=== PATIENT | male | born 1945 | race Caucasian/White ===

== ENCOUNTER 2016-09-11 19:50 | Inpatient (IN) | payer MEDICARE, MEDICAID ==
[2016-09-11 20:28] VITALS: BP 160/79
[2016-09-11] MEDS ORDERED: Potassium Chloride 20 mEq ER Tab PO ONE (20:38)
[2016-09-11] MEDS ORDERED: Maalox 30 mL Cup PO PRN (20:38)
[2016-09-11] MEDS ORDERED: SUVOREXANT 10 MG PO PRN (20:44)
[2016-09-11] MEDS ORDERED: SUVOREXANT 10 MG PO SCH (21:00)
[2016-09-11] MEDS: INSULIN ASPART, RECOMBINANT 100 UNITS/ML SUBQ SCH (21:14)
[2016-09-11] MEDS: Albuterol Nebulizer 2.5mg/3mL IH SCH (22:26)
[2016-09-11] MEDS: Ipratropium Neb 0.5 mg/2.5 mL UD IH SCH (22:30)
[2016-09-12 01:11] LABS: URINE BILIRUBIN NEGATIVE (NEGATIVE); URINE COLOR YELLOW; URINE GLUCOSE (UA) 100 mg/dL (NEGATIVE); URINE KETONE NEGATIVE (NEGATIVE)
[2016-09-12 01:12] LABS: URINE BACTERIA OCCASIONAL /hpf (NONE SEEN); URINE BLOOD SMALL (NEGATIVE); URINE EPITHELIAL CELLS OCCASIONAL /lpf (FEW); URINE PROTEIN >300 mg/dL (NEGATIVE); URINE RBC 0-2 /hpf (0-5); URINE WBC 0-2 /hpf (0-5)
[2016-09-12] MEDS: INSULIN ASPART, RECOMBINANT 100 UNITS/ML SUBQ SCH ×4 (06:38→20:23)
[2016-09-12 06:41] LABS: % BASOPHILS 0.2 % (0.0-2.0); % LYMPHOCYTES 10.9 % (20.0-50.0); % MONOCYTES 6.6 % (2.0-10.0); % NEUTROPHILS 81.3 % (40.0-80.0); HEMATOCRIT 39.5 % (39.0-49.0); HEMOGLOBIN 13.6 gm/dL (12.6-17.4); MEAN CELL VOLUME 91.7 fl (80-99); MEAN CORPUSCULAR HEMOGLOBIN 31.5 pg (27.0-31.0); MEAN CORPUSCULAR HGB CONC 34.4 pg (28.0-36.0); MEAN PLATELET VOLUME 8.4 fl; PLATELET COUNT 130 Th/cmm (150-400); RED CELL DISTRIBUTION WIDTH 12.8 % (11.5-20.0); WHITE BLOOD COUNT 14.7 Th/cmm (4.8-10.8)
[2016-09-12 06:57] LABS: ALKALINE PHOSPHATASE 51 U/L (34-104); ANION GAP 4.2 (7.0-16.0); BILIRUBIN,TOTAL 1.7 mg/dL (0.3-1.0); BUN - UREA NITROGEN 16 mg/dL (7-25); BUN/CREATININE RATIO 13.3; CARBON DIOXIDE 33.6 mEq/L (21.0-31.0); CHLORIDE 99 mEq/L (98-107); CREATININE - SERUM 1.2 mg/dL (0.7-1.3); GLUCOSE 116 mg/dL (70-105); MAGNESIUM 1.5 mg/dL (1.9-2.7); SGOT 16 U/L (13-39); SGPT/ALT 12 U/L (7-52); SODIUM SERUM 134 mEq/L (136-145)
[2016-09-12 07:14] LABS: POTASSIUM SERUM 2.8 mEq/L (3.5-5.1)
[2016-09-12] MEDS: Albuterol Nebulizer 2.5mg/3mL IH SCH ×4 (07:53→19:24)
[2016-09-12] MEDS: Ipratropium Neb 0.5 mg/2.5 mL UD IH SCH ×4 (07:54→19:24)
[2016-09-12] MEDS: Pantoprazole 40 mg EC Tab PO SCH (09:12)
--- NOTE | 2016-09-12 11:05 | Diagnostic Imaging Report ---
Portable chest x-ray HISTORY: Shortness of breath The heart is enlarged. There is a degree of pulmonary vascular redistribution consistent with an element of cardiac decompensation. No jayro pulmonary edema. No other focal processes. IMPRESSION: 1. Cardiomegaly along with evidence of a marginal degree of congestive heart failure without jayro pulmonary edema.
[2016-09-12] MEDS: KCL 20mEq/100mL Premix 20 MEQ/100 ML PIGGYBACK IV SCH ×2 (11:20→13:16)
[2016-09-12] MEDS ORDERED: VTE Chemical Prophylaxis Screen/Admission MC PRN (11:38)
--- NOTE | 2016-09-12 12:49 | Internal Medicine Prog Note ---
Internal Medicine Subjective - Subjective Service Date: 09/12/16 ([facility] [id number]) Internal Medicine Objective - Results Result Diagrams: 09/12/16 06:02 09/12/16 06:02 Recent Labs: Laboratory Last Values WBC 14.7 Th/cmm (4.8-10.8) H 09/12/16 06:02 RBC 4.30 Mil/cmm (3.80-5.80) 09/12/16 06:02 Hgb 13.6 gm/dL (12.6-17.4) 09/12/16 06:02 Hct 39.5 % (39.0-49.0) 09/12/16 06:02 MCV 91.7 fl (80-99) 09/12/16 06:02 MCH 31.5 pg (27.0-31.0) H 09/12/16 06:02 MCHC Differential 34.4 pg (28.0-36.0) 09/12/16 06:02 RDW 12.8 % (11.5-20.0) 09/12/16 06:02 Plt Count 130 Th/cmm (150-400) L 09/12/16 06:02 MPV 8.4 fl 09/12/16 06:02 Neutrophils % 81.3 % (40.0-80.0) H 09/12/16 06:02 Lymphocytes % 10.9 % (20.0-50.0) L 09/12/16 06:02 Monocytes % 6.6 % (2.0-10.0) 09/12/16 06:02 Eosinophils % 1.0 % (0.0-5.0) 09/12/16 06:02 Basophils % 0.2 % (0.0-2.0) 09/12/16 06:02 Sodium 134 mEq/L (136-145) L 09/12/16 06:02 Potassium 2.8 mEq/L (3.5-5.1) L* 09/12/16 06:02 Chloride 99 mEq/L (98-107) 09/12/16 06:02 Carbon Dioxide 33.6 mEq/L (21.0-31.0) H 09/12/16 06:02 Anion Gap 4.2 (7.0-16.0) L 09/12/16 06:02 BUN 16 mg/dL (7-25) 09/12/16 06:02 Creatinine 1.2 mg/dL (0.7-1.3) 09/12/16 06:02 Est GFR ( Amer) TNP 09/12/16 06:02 Est GFR (Non-Af Amer) TNP 09/12/16 06:02 BUN/Creatinine Ratio 13.3 09/12/16 06:02 Glucose 116 mg/dL (70-105) H 09/12/16 06:02 POC Glucose 113 MG/DL (70 - 105) H 09/12/16 12:16 Calcium 9.0 mg/dL (8.6-10.3) 09/12/16 06:02 Magnesium 1.5 mg/dL (1.9-2.7) L 09/12/16 06:02 Total Bilirubin 1.7 mg/dL (0.3-1.0) H 09/12/16 06:02 AST 16 U/L (13-39) 09/12/16 06:02 ALT 12 U/L (7-52) 09/12/16 06:02 Alkaline Phosphatase 51 U/L (34-104) 09/12/16 06:02 B-Natriuretic Peptide 1300.0 pg/mL (5.0-100.0) H 09/12/16 06:02 Total Protein 6.4 gm/dL (6.0-8.3) 09/12/16 06:02 Albumin 3.2 gm/dL (4.2-5.5) L 09/12/16 06:02 Globulin 3.2 gm/dL 09/12/16 06:02 Albumin/Globulin Ratio 1.0 (1.0-1.8) 09/12/16 06:02 TSH 0.60 uIU/ml (0.34-5.60) 09/12/16 06:02 Urine Source CLEAN C 09/12/16 00:15 Urine Color YELLOW 09/12/16 00:15 Urine Clarity CLEAR (CLEAR) 09/12/16 00:15 Urine pH 7.0 09/12/16 00:15 Ur Specific [place] 1.020 (1.005-1.030) 09/12/16 00:15 Urine Protein >300 mg/dL (NEGATIVE) H 09/12/16 00:15 Urine Glucose (UA) 100 mg/dL (NEGATIVE) H 09/12/16 00:15 Urine Ketones NEGATIVE mg/dL (NEGATIVE) 09/12/16 00:15 Urine Blood SMALL (NEGATIVE) H 09/12/16 00:15 Urine Nitrate NEGATIVE (NEGATIVE) 09/12/16 00:15 Urine Bilirubin NEGATIVE (NEGATIVE) 09/12/16 00:15 Urine Urobilinogen 4.0 E.U./dL (0.2 - 1.0) H 09/12/16 00:15 Ur Leukocyte Esterase NEGATIVE (NEGATIVE) 09/12/16 00:15 Urine RBC 0-2 /hpf (0-5) H 09/12/16 00:15 Urine WBC 0-2 /hpf (0-5) 09/12/16 00:15 Ur Epithelial Cells OCCASIONAL /lpf (FEW) 09/12/16 00:15 Urine Bacteria OCCASIONAL /hpf (NONE SEEN) 09/12/16 00:15 - Physical Exam Vitals and I&O: Vital Signs Temp 97.9 F 09/12/16 12:01 Pulse 80 09/12/16 12:01 Resp 19 09/12/16 12:01 BP 146/72 09/12/16 12:01 Pulse Ox 98 09/12/16 12:01 Intake & Output 09/11/16 09/12/16 09/12/16 18:59 06:59 18:59 Intake Total 800 Balance 800 Weight (lbs) 219 lb 9.6 oz Intake: Oral 800 Other: # Voids 2 # Bowel Movements 0 Active Medications: Current Medications Acetaminophen (Tylenol) 650 mg PO Q4HR PRN PRN Reason: Pain or Fever >101 Stop: 11/10/16 20:37 Last Admin: 09/12/16 04:13 Dose: 650 mg Al Hydrox/Mg Hydrox/Simethicone (Maalox) 30 ml PO Q6HR PRN PRN Reason: Constipation Stop: 11/10/16 20:37 Albuterol Sulfate (Albuterol 2.5mg/3ml Neb Ud) 2.5 mg IH QID [facility] Stop: 11/10/16 20:59 Last Admin: 09/12/16 11:16 Dose: 2.5 mg Aspirin (Ecotrin) 81 mg PO DAILY [facility] Stop: 11/11/16 08:59 Last Admin: 09/12/16 09:11 Dose: 81 mg Benazepril HCl (Lotensin) 10 mg PO BID [facility] Stop: 11/11/16 08:59 Last Admin: 09/12/16 09:10 Dose: 10 mg Carvedilol (Coreg) 6.25 mg PO BID [facility] Stop: 11/11/16 08:59 Last Admin: 09/12/16 09:11 Dose: 6.25 mg Clonidine HCl (Catapres) 0.1 mg PO Q6HR PRN PRN Reason: SBP GREATER THAN 160 Stop: 11/10/16 20:37 Furosemide (Lasix) 20 mg IVP BID [facility] Stop: 11/11/16 08:59 Last Admin: 09/12/16 09:12 Dose: 20 mg Glipizide (Glucotrol) 5 mg PO QDAC [facility] Stop: 11/11/16 07:29 Last Admin: 09/12/16 06:37 Dose: 5 mg Heparin Sodium (Porcine) (Heparin) 5,000 units SUBQ Q12HR [facility] Stop: 11/10/16 20:59 Last Admin: 09/12/16 09:12 Dose: 5,000 units Potassium Chloride (Potassium Chloride) 20 meq in 100 mls @ 50 mls/hr IV Q2H [facility] Stop: 09/12/16 14:29 Last Admin: 09/12/16 11:20 Dose: 50 mls/hr Insulin Aspart (Novolog) 0 units SUBQ ACHS [facility] PRN Reason: Protocol Stop: 11/10/16 20:59 Last Admin: 09/12/16 12:17 Dose: Not Given Ipratropium [place] (Atrovent Neb 0.5mg/2.5ml) 0.5 mg IH QID [facility] Stop: 11/10/16 20:59 Last Admin: 09/12/16 11:16 Dose: 0.5 mg Miscellaneous (Suvorexant [Belsomra]) 10 mg PO HS PRN PRN Reason: Insomnia Stop: 11/10/16 20:59 Miscellaneous (Vte Chemical Prophylaxis Screen/ Admission) 1 ea [facility] PRN PRN PRN Reason: PROTOCOL Stop: 11/11/16 11:37 Ondansetron HCl (Zofran) 4 mg IV Q8H PRN PRN Reason: Nausea / Vomiting Stop: 11/10/16 20:37 Pantoprazole Sodium (Protonix) 40 mg PO DAILY [facility] Stop: 11/11/16 08:59 Last Admin: 09/12/16 09:12 Dose: 40 mg Zolpidem Tartrate (Ambien) 10 mg PO HS PRN PRN Reason: Insomnia Stop: 11/10/16 20:37 Internal Medicine Assmt/Plan - Assessment Assessment: acute chf exacerbation hypokalemia hypocalcemia htn dm-2 alcoholism ckd stage 3
[2016-09-12] MEDS ORDERED: Mag Sulfate 2gm/50mL Premix 2 GM/50 ML BAG IV ONE (12:50)
--- NOTE | 2016-09-12 14:00 | History & Physical ---
CHIEF COMPLAINT: Shortness of breath. HISTORY OF PRESENT ILLNESS: This is a 71-year-old male who is a direct admission from [facility]. According to the patient, he has been having a 3-day history of shortness of breath associated with productive cough with greenish phlegm. The patient denied any fevers or any recent travel outside of the . Denies any chills or night sweats. Due to insurance purposes, the patient is now here at [facility]. The patient also states when he is lying down flat, he states that he feels like he is drowning. PAST MEDICAL HISTORY: Hypertension, type 2 diabetes, CHF, hypokalemia, CKD, stage III, history of CVA or alcohol dependence. SURGICAL HISTORY: Hernia repair, cholecystectomy, appendectomy. SOCIAL HISTORY: The patient denies any tobacco, but states that he drinks 6 can of beers per day. Denies any illicit drug usage. FAMILY HISTORY: Unknown. MEDICATIONS: Please see medication reconciliation sheet. REVIEW OF SYSTEMS: GENERAL: Denies any fevers, any chills. CARDIOVASCULAR: Denies any chest pain. RESPIRATORY: Complains of shortness of breath when lying down flat. GASTROINTESTINAL: Denies any nausea, vomiting, or abdominal pain. GENITOURINARY: He denies any dysuria. All other systems are reviewed by me and are negative. PHYSICAL EXAMINATION: SKIN: The patient is morbidly obese, awake, alert and in no apparent distress. VITAL SIGNS: Temperature 97.9, heart rate 80, blood pressure 146/72, respirations 19, O2 98%. HEENT: Head; normocephalic, atraumatic. NECK: Supple. No mass. LUNGS: Few rhonchi bilaterally upon auscultation. HEART: Regular rate and rhythm. No murmurs or gallops. ABDOMEN: Soft, nontender, nondistended. Positive bowel sounds in all 4 quadrants. LABORATORY DATA: WBC 14.7, H and H 13.6 and 39.5, platelet 130. Sodium 134, potassium 2.8, chloride 99, carbon dioxide of 33.6, BUN 16, creatinine 1.2, magnesium of 1.5. The patient had a chest x-ray done and the impression is cardiomegaly along with evidence of marginal degree of congestive heart failure without jayro pulmonary edema. ASSESSMENT: 1. Congestive heart failure exacerbation. 2. Hypokalemia. 3. Hyponatremia. 4. Alcoholism. 5. Protein-calorie malnutrition. PLAN: The patient to be admitted to the telemetry unit. The patient will have a consultation with Dr. Guru Casey. The patient will have 2D echo. CBC and BMP will be monitored. The patient's electrolytes will be monitored as well. The patient will be kept on diuretics, Lasix 20 mg IV push. We will continue to monitor the patient. JOB# [id number]
--- NOTE | 2016-09-12 19:36 | Cardiology ---
Patient of Dr. Urias. M-MODE ECHOCARDIOGRAM: Mitral Valve: Anterior leaflet of the mitral valve shows normal excursion, EF velocity. Posterior leaflet of the mitral valve shows normal excursion. Left ventricular posterior wall shows increased thickness, decreased excursion. Interventricular septum shows increased thickness, decreased excursion, ejection fraction 45%. Left atrium enlarged, 4.6 cm. Aortic root shows normal dimension, normal excursion of aortic leaflets. CONCLUSION: Hypertrophy of the left ventricle, ejection fraction 40%, left atrial enlargement. 2D ECHO: Long axis view shows enlarged left ventricular cavity with decreased ejection fraction, hypertrophy of the left ventricle, left atrial enlargement. Aortic root shows normal dimension, normal excursion of aortic leaflets. Short axis view of mitral valve normal. Short axis view of aortic valve normal. Apical four-chamber view shows enlarged left ventricular cavity with hypertrophy of the left ventricle, ejection fraction 40%, left atrial enlargement. Right ventricular cavity, right atrium normal. No pericardial effusion. CONCLUSION: Hypertrophy of the left ventricle, ejection fraction 40%, left atrial enlargement. Doppler study shows prominent A wave consistent with poor compliance of left ventricle, mild mitral regurgitation, mild aortic regurgitation. JOB# [id number]
--- NOTE | 2016-09-13 02:12 | Admit Criteria Form ---
Admit Criteria Forms - Admit Criteria Diagnosis: HEART FAILURE: COMMON COMPLICATIONS Clinical Indications for Inpatient Care (Place 'X' for any and all applicable criteria): Ongoing inpatient care may be indicated for heart failure with ANY ONE of the following (1)(2)(3)(4)(5): [ ]I. Ongoing need for care for primary condition requiring frequent therapy adjustments because of changes in cardiac function (eg, drug dosage changes for drugs that are renally metabolized) [ ]II. New-onset heart failure [ ]III. Heart failure with decreased urine output not responsive to attempts to optimize volume status [ ]IV. Acute cardiac ischemia causing or associated with failure [ X]V. Complications of heart failure, including ANY ONE of the following: [ ]a) Pericardial effusion [ ]b) Symptomatic pleural effusion [ ]c) O2 saturation <90% or PO2 < 60 mm Hg (8.0 kPa) on room air or require baseline supplemental O2 [ ]d) Tachypnea [ X]e) Dyspnea [ ]f) Syncope [ ]g) Change in mental status [ ]h) Acute renal insufficiency that is severe (reduction of more than 50% in estimated glomerular filtration rate from baseline) or progressive reduction of more than 25% in estimated glomerular filtration rate from baseline, with creatinine continuing to rise) [ ]i) Hemodynamic instability [ ]j) Anasarca [ ]k) Clinically significant metabolic abnormalities due to heart failure (eg, new-onset metabolic acidosis) Extended stay beyond goal length of stay for primary condition may be needed until ALL of the following are present(1)(3): [ ]a) Stable and effective diuretic regimen established (or patient on stable dialysis regimen if in chronic renal failure) [ ]b) Breathing comfortably at rest [ ]c) Saturation of arterial oxygen greater than 90% or at acceptable baseline [ ]d) Pulmonary edema absent or improved [ ]e) Hemodynamic stability [ ]f) Volume status acceptable on oral medication [ ]g) Peripheral or sacral edema absent or improved [ ]h) Renal function stable and manageable at a lower level of care [ ]i) Complications (eg, pleural effusion) resolved or manageable at a lower level of care [ ]j) Patient or caregiver has received written discharge instructions or educational material addressing activity level, diet, discharge medications, follow-up appointment, weight monitoring, and what to do if symptoms worsen The original [facility] [employer] content created by [employer] has been revised. The portions of the content which have been revised are identified through the use of italic text or in bold, and [employer] has neither reviewed nor approved the modified material.All other unmodified content is copyright [employer]. Please see references footnoted in the original [employer] edition 2016 Admit Criteria Met?: Yes
[2016-09-13] MEDS: INSULIN ASPART, RECOMBINANT 100 UNITS/ML SUBQ SCH ×4 (06:31→20:36)
[2016-09-13] MEDS: Ipratropium Neb 0.5 mg/2.5 mL UD IH SCH (06:51)
[2016-09-13] MEDS: Albuterol Nebulizer 2.5mg/3mL IH SCH (06:51)
[2016-09-13 07:00] LABS: % BASOPHILS 0.6 % (0.0-2.0); % EOSINOPHILS 3.6 % (0.0-5.0); % LYMPHOCYTES 15.3 % (20.0-50.0); % MONOCYTES 9.8 % (2.0-10.0); % NEUTROPHILS 70.7 % (40.0-80.0); HEMATOCRIT 38.8 % (39.0-49.0); HEMOGLOBIN 13.3 gm/dL (12.6-17.4); MEAN CELL VOLUME 93.1 fl (80-99); MEAN CORPUSCULAR HEMOGLOBIN 31.9 pg (27.0-31.0); MEAN CORPUSCULAR HGB CONC 34.3 pg (28.0-36.0); MEAN PLATELET VOLUME 8.8 fl; NEUTROPHILE ABSOLUTE 6.7 Th/cmm (1.8-8.0); PLATELET COUNT 130 Th/cmm (150-400); RED BLOOD COUNT 4.16 Mil/cmm (3.80-5.80)
--- NOTE | 2016-09-13 07:07 | Consultation ---
The patient is a patient of Dr. Urias. HISTORY AND PHYSICAL: This is a 71-year-old male patient who was complaining of shortness of breath following cough with expectoration. The patient was seen at [facility] and the patient was transferred to [facility]. PAST MEDICAL HISTORY: The patient has a history of hypertension, diabetes, congestive heart failure, CKD stage III, CVA with late effect, alcohol dependence, cholecystectomy, hernia repair and appendectomy. FAMILY HISTORY: Unremarkable. SOCIAL HISTORY: No history of smoking. The patient drinks 6 beers a day. ALLERGIES: No known allergies. PHYSICAL EXAMINATION: VITAL SIGNS: Blood pressure 130/80, pulse 70 and respirations 20. HEAD: Normocephalic. No lumps or bumps. EYES: Pupils equal and reactive to light. Fundi show AV nicking. Sclerae white, conjunctivae pink. NECK: Carotid 2+. Normal upstroke. JVD flat. Thyroid not palpable. Lymph nodes not palpable. CHEST: Shows increased AP diameter. No kyphosis or scoliosis. LUNGS: Bilateral bronchovesicular breath sounds. HEART: PMI fifth intercostal space with lateral to midclavicular line. S1, S2, S3, S4, systolic murmur, grade 2/6, lower left sternal border without radiation. ABDOMEN: Soft. Liver and spleen not palpable. No organomegaly. Bowel sounds are active. NEUROLOGIC: Unremarkable. EXTREMITIES: Peripheral pulses 2+. No pedal edema. The patient has elevated BNP level. CLINICAL IMPRESSION: Congestive heart failure. We will get echocardiogram to evaluate left ventricular function, hypertension, diabetes mellitus type 2, hyperlipidemia, diabetic CKD stage III, hypokalemia, CVA with late effect and alcohol dependence. PLAN: The patient to continue on diuretics still lot of ____ reduction, echocardiogram and a followup on telemetry bed. JOB# [id number]
[2016-09-13 07:13] LABS: WHITE BLOOD COUNT 9.4 Th/cmm (4.8-10.8)
[2016-09-13 07:21] LABS: ANION GAP 11.3 (7.0-16.0); BUN - UREA NITROGEN 22 mg/dL (7-25); BUN/CREATININE RATIO 15.7; CALCIUM SERUM 9.1 mg/dL (8.6-10.3); CARBON DIOXIDE 32.4 mEq/L (21.0-31.0); CHLORIDE 96 mEq/L (98-107); CREATININE - SERUM 1.4 mg/dL (0.7-1.3); GLUCOSE 107 mg/dL (70-105); SODIUM SERUM 137 mEq/L (136-145)
[2016-09-13 07:35] LABS: POTASSIUM SERUM 2.7 mEq/L (3.5-5.1)
[2016-09-13] MEDS: Pantoprazole 40 mg EC Tab PO SCH (08:55)
[2016-09-13] MEDS ORDERED: Mag Sulfate 2gm/50mL Premix 2 GM/50 ML BAG IV ONE (09:28)
[2016-09-13] MEDS ORDERED: LIDOCAINE IV ONE (09:29)
[2016-09-13] MEDS ORDERED: SODIUM CHLORIDE 0.9% IV ONE (09:29)
[2016-09-13] MEDS ORDERED: POTASSIUM CHLORIDE IV ONE (09:29)
[2016-09-13] MEDS: Ipratropium Neb 0.5 mg/2.5 mL UD HHN SCH ×3 (10:58→19:22)
[2016-09-13] MEDS: Albuterol Nebulizer 2.5mg/3mL HHN SCH ×3 (10:58→19:22)
[2016-09-13 14:24] LABS: FOLIC ACID 10.5 ng/mL (>3.0)
--- NOTE | 2016-09-13 15:21 | Internal Medicine Prog Note ---
Internal Medicine Subjective - Subjective Patient seen and examined:: with staff, chart reviewed Patient is:: awake, interactive, in bed Patient Complaints of:: congestion Per staff patient is:: no adverse event, eating well Internal Medicine Objective - Results Result Diagrams: 09/13/16 06:10 09/13/16 06:10 Recent Labs: Laboratory Last Values WBC 9.4 Th/cmm (4.8-10.8) D 09/13/16 06:10 RBC 4.16 Mil/cmm (3.80-5.80) 09/13/16 06:10 Hgb 13.3 gm/dL (12.6-17.4) 09/13/16 06:10 Hct 38.8 % (39.0-49.0) L 09/13/16 06:10 MCV 93.1 fl (80-99) 09/13/16 06:10 MCH 31.9 pg (27.0-31.0) H 09/13/16 06:10 MCHC Differential 34.3 pg (28.0-36.0) 09/13/16 06:10 RDW 13.0 % (11.5-20.0) 09/13/16 06:10 Plt Count 130 Th/cmm (150-400) L 09/13/16 06:10 MPV 8.8 fl 09/13/16 06:10 Neutrophils % 70.7 % (40.0-80.0) 09/13/16 06:10 Lymphocytes % 15.3 % (20.0-50.0) L 09/13/16 06:10 Monocytes % 9.8 % (2.0-10.0) 09/13/16 06:10 Eosinophils % 3.6 % (0.0-5.0) 09/13/16 06:10 Basophils % 0.6 % (0.0-2.0) 09/13/16 06:10 Sodium 137 mEq/L (136-145) 09/13/16 06:10 Potassium 2.7 mEq/L (3.5-5.1) L* 09/13/16 06:10 Chloride 96 mEq/L (98-107) L 09/13/16 06:10 Carbon Dioxide 32.4 mEq/L (21.0-31.0) H 09/13/16 06:10 Anion Gap 11.3 (7.0-16.0) 09/13/16 06:10 BUN 22 mg/dL (7-25) 09/13/16 06:10 Creatinine 1.4 mg/dL (0.7-1.3) H 09/13/16 06:10 Est GFR ( Amer) TNP 09/13/16 06:10 Est GFR (Non-Af Amer) TNP 09/13/16 06:10 BUN/Creatinine Ratio 15.7 09/13/16 06:10 Glucose 107 mg/dL (70-105) H 09/13/16 06:10 POC Glucose 163 MG/DL (70 - 105) H 09/13/16 11:16 Calcium 9.1 mg/dL (8.6-10.3) 09/13/16 06:10 Magnesium 1.8 mg/dL (1.9-2.7) L 09/13/16 06:10 Total Bilirubin 1.7 mg/dL (0.3-1.0) H 09/12/16 06:02 AST 16 U/L (13-39) 09/12/16 06:02 ALT 12 U/L (7-52) 09/12/16 06:02 Alkaline Phosphatase 51 U/L (34-104) 09/12/16 06:02 B-Natriuretic Peptide 1300.0 pg/mL (5.0-100.0) H 09/12/16 06:02 Total Protein 6.4 gm/dL (6.0-8.3) 09/12/16 06:02 Albumin 3.2 gm/dL (4.2-5.5) L 09/12/16 06:02 Globulin 3.2 gm/dL 09/12/16 06:02 Albumin/Globulin Ratio 1.0 (1.0-1.8) 09/12/16 06:02 Vitamin B12 333 pg/mL (211-946) 09/12/16 06:02 Folic Acid 10.5 ng/mL (>3.0) 09/12/16 06:02 TSH 0.60 uIU/ml (0.34-5.60) 09/12/16 06:02 Urine Source CLEAN C 09/12/16 00:15 Urine Color YELLOW 09/12/16 00:15 Urine Clarity CLEAR (CLEAR) 09/12/16 00:15 Urine pH 7.0 09/12/16 00:15 Ur Specific [place] 1.020 (1.005-1.030) 09/12/16 00:15 Urine Protein >300 mg/dL (NEGATIVE) H 09/12/16 00:15 Urine Glucose (UA) 100 mg/dL (NEGATIVE) H 09/12/16 00:15 Urine Ketones NEGATIVE mg/dL (NEGATIVE) 09/12/16 00:15 Urine Blood SMALL (NEGATIVE) H 09/12/16 00:15 Urine Nitrate NEGATIVE (NEGATIVE) 09/12/16 00:15 Urine Bilirubin NEGATIVE (NEGATIVE) 09/12/16 00:15 Urine Urobilinogen 4.0 E.U./dL (0.2 - 1.0) H 09/12/16 00:15 Ur Leukocyte Esterase NEGATIVE (NEGATIVE) 09/12/16 00:15 Urine RBC 0-2 /hpf (0-5) H 09/12/16 00:15 Urine WBC 0-2 /hpf (0-5) 09/12/16 00:15 Ur Epithelial Cells OCCASIONAL /lpf (FEW) 09/12/16 00:15 Urine Bacteria OCCASIONAL /hpf (NONE SEEN) 09/12/16 00:15 - Physical Exam Vitals and I&O: Vital Signs Temp 98.0 F 09/13/16 12:00 Pulse 78 09/13/16 14:01 Resp 20 09/13/16 14:01 BP 137/64 09/13/16 12:00 Pulse Ox 98 09/13/16 14:01 Intake & Output 09/12/16 09/13/16 09/13/16 18:59 06:59 18:59 Intake Total 246.933 021 9457 Output Total 650 550 Balance -403.333 480 550 Weight (lbs) 99.473 kg Intake: Intake, IV Amount 246.667 KCL 20mEq/100mL Premix 20 96.667 meq In 100 ml @ 50 mls/ hr IV Q2H [facility] Rx#: [id number] Oral 480 1100 Output: Urine 650 550 Other: # Voids 4 3 Active Medications: Current Medications Acetaminophen (Tylenol) 650 mg PO Q4HR PRN PRN Reason: Pain or Fever >101 Stop: 11/10/16 20:37 Last Admin: 09/12/16 04:13 Dose: 650 mg Al Hydrox/Mg Hydrox/Simethicone (Maalox) 30 ml PO Q6HR PRN PRN Reason: Constipation Stop: 11/10/16 20:37 Albuterol Sulfate (Albuterol 2.5mg/3ml Neb Ud) 2.5 mg HHN QIDRT [facility] Stop: 11/12/16 10:59 Last Admin: 09/13/16 14:01 Dose: 2.5 mg Aspirin (Ecotrin) 81 mg PO DAILY [facility] Stop: 11/11/16 08:59 Last Admin: 09/13/16 09:46 Dose: 81 mg Benazepril HCl (Lotensin) 10 mg PO BID [facility] Stop: 11/11/16 08:59 Last Admin: 09/13/16 08:53 Dose: 10 mg Carvedilol (Coreg) 6.25 mg PO BID [facility] Stop: 11/11/16 08:59 Last Admin: 09/13/16 08:54 Dose: 6.25 mg Clonidine HCl (Catapres) 0.1 mg PO Q6HR PRN PRN Reason: SBP GREATER THAN 160 Stop: 11/10/16 20:37 Furosemide (Lasix) 20 mg IVP BID [facility] Stop: 11/11/16 08:59 Last Admin: 09/13/16 08:55 Dose: 20 mg Glipizide (Glucotrol) 5 mg PO QDAC [facility] Stop: 11/11/16 07:29 Last Admin: 09/13/16 06:33 Dose: 5 mg Heparin Sodium (Porcine) (Heparin) 5,000 units SUBQ Q12HR [facility] Stop: 11/10/16 20:59 Last Admin: 09/13/16 08:55 Dose: 5,000 units Potassium Chloride 60 meq/Lidocaine HCl 25 mg/ Sodium Chloride 282.5 mls @ 48 mls/hr IV X1 ONE Stop: 09/13/16 15:22 Last Admin: 09/13/16 10:58 Dose: 48 mls/hr Insulin Aspart (Novolog) 0 units SUBQ ACHS [facility] PRN Reason: Protocol Stop: 11/10/16 20:59 Last Admin: 09/13/16 11:47 Dose: Not Given Ipratropium [place] (Atrovent Neb 0.5mg/2.5ml) 0.5 mg HHN QIDRT [facility] Stop: 03/27/17 10:59 Last Admin: 09/13/16 14:01 Dose: 0.5 mg Miscellaneous (Suvorexant [Belsomra]) 10 mg PO HS PRN PRN Reason: Insomnia Stop: 11/10/16 20:59 Miscellaneous (Vte Chemical Prophylaxis Screen/ Admission) 1 ea [facility] PRN PRN PRN Reason: PROTOCOL Stop: 11/11/16 11:37 Ondansetron HCl (Zofran) 4 mg IV Q8H PRN PRN Reason: Nausea / Vomiting Stop: 11/10/16 20:37 Pantoprazole Sodium (Protonix) 40 mg PO DAILY [facility] Stop: 11/11/16 08:59 Last Admin: 09/13/16 08:55 Dose: 40 mg Zolpidem Tartrate (Ambien) 10 mg PO HS PRN PRN Reason: Insomnia Stop: 11/10/16 20:37 General: alert HEENT: NC/AT, PERRLA Neck: Supple, No JVD Lungs: congested, rales Cardiovascular: RRR, Normal S1, Normal S2 Abdomen: soft non-tender, globular, distended, positive bowel sound Extremities: excoriation Neurological: no change Internal Medicine Assmt/Plan - Assessment Assessment: acute chf exacerbation hypokalemia hypocalcemia htn dm-2 alcoholism ckd stage 3 - Plan Plan: will replace lytes cont on iv diuretic card follow up 2 d echo pending huyen talbot
[2016-09-13] MEDS: Potassium Chloride 20 mEq ER Tab PO SCH (17:36)
[2016-09-14] MEDS: INSULIN ASPART, RECOMBINANT 100 UNITS/ML SUBQ SCH ×2 (06:31→11:22)
[2016-09-14 06:46] LABS: ANION GAP 8.1 (7.0-16.0); BUN - UREA NITROGEN 24 mg/dL (7-25); CALCIUM SERUM 9.1 mg/dL (8.6-10.3); CARBON DIOXIDE 31.5 mEq/L (21.0-31.0); CHLORIDE 99 mEq/L (98-107); CREATININE - SERUM 1.5 mg/dL (0.7-1.3); GLUCOSE 110 mg/dL (70-105); POTASSIUM SERUM 3.6 mEq/L (3.5-5.1); SODIUM SERUM 135 mEq/L (136-145)
[2016-09-14] MEDS: Albuterol Nebulizer 2.5mg/3mL HHN SCH ×3 (07:02→14:25)
[2016-09-14] MEDS: Pantoprazole 40 mg EC Tab PO SCH (08:49)
[2016-09-14] MEDS: Potassium Chloride 20 mEq ER Tab PO SCH (08:49)
[2016-09-14] MEDS: Ipratropium Neb 0.5 mg/2.5 mL UD HHN SCH ×2 (11:00→14:25)
--- NOTE | 2016-09-14 12:16 | Internal Medicine Prog Note ---
Internal Medicine Subjective - Subjective Service Date: 09/14/16 Patient seen and examined:: with staff Patient is:: awake Per staff patient is:: no adverse event Internal Medicine Objective - Results Result Diagrams: 09/13/16 06:10 09/14/16 05:30 Recent Labs: Laboratory Last Values WBC 9.4 Th/cmm (4.8-10.8) D 09/13/16 06:10 RBC 4.16 Mil/cmm (3.80-5.80) 09/13/16 06:10 Hgb 13.3 gm/dL (12.6-17.4) 09/13/16 06:10 Hct 38.8 % (39.0-49.0) L 09/13/16 06:10 MCV 93.1 fl (80-99) 09/13/16 06:10 MCH 31.9 pg (27.0-31.0) H 09/13/16 06:10 MCHC Differential 34.3 pg (28.0-36.0) 09/13/16 06:10 RDW 13.0 % (11.5-20.0) 09/13/16 06:10 Plt Count 130 Th/cmm (150-400) L 09/13/16 06:10 MPV 8.8 fl 09/13/16 06:10 Neutrophils % 70.7 % (40.0-80.0) 09/13/16 06:10 Lymphocytes % 15.3 % (20.0-50.0) L 09/13/16 06:10 Monocytes % 9.8 % (2.0-10.0) 09/13/16 06:10 Eosinophils % 3.6 % (0.0-5.0) 09/13/16 06:10 Basophils % 0.6 % (0.0-2.0) 09/13/16 06:10 Sodium 135 mEq/L (136-145) L 09/14/16 05:30 Potassium 3.6 mEq/L (3.5-5.1) 09/14/16 05:30 Chloride 99 mEq/L (98-107) 09/14/16 05:30 Carbon Dioxide 31.5 mEq/L (21.0-31.0) H 09/14/16 05:30 Anion Gap 8.1 (7.0-16.0) 09/14/16 05:30 BUN 24 mg/dL (7-25) 09/14/16 05:30 Creatinine 1.5 mg/dL (0.7-1.3) H 09/14/16 05:30 Est GFR ( Amer) TNP 09/14/16 05:30 Est GFR (Non-Af Amer) TNP 09/14/16 05:30 BUN/Creatinine Ratio 16.0 09/14/16 05:30 Glucose 110 mg/dL (70-105) H 09/14/16 05:30 POC Glucose 157 MG/DL (70 - 105) H 09/14/16 11:20 Calcium 9.1 mg/dL (8.6-10.3) 09/14/16 05:30 Magnesium 2.0 mg/dL (1.9-2.7) 09/14/16 05:30 Total Bilirubin 1.7 mg/dL (0.3-1.0) H 09/12/16 06:02 AST 16 U/L (13-39) 09/12/16 06:02 ALT 12 U/L (7-52) 09/12/16 06:02 Alkaline Phosphatase 51 U/L (34-104) 09/12/16 06:02 B-Natriuretic Peptide 586.0 pg/mL (5.0-100.0) H 09/14/16 05:30 Total Protein 6.4 gm/dL (6.0-8.3) 09/12/16 06:02 Albumin 3.2 gm/dL (4.2-5.5) L 09/12/16 06:02 Globulin 3.2 gm/dL 09/12/16 06:02 Albumin/Globulin Ratio 1.0 (1.0-1.8) 09/12/16 06:02 Vitamin B12 333 pg/mL (211-946) 09/12/16 06:02 Folic Acid 10.5 ng/mL (>3.0) 09/12/16 06:02 TSH 0.60 uIU/ml (0.34-5.60) 09/12/16 06:02 Urine Source CLEAN C 09/12/16 00:15 Urine Color YELLOW 09/12/16 00:15 Urine Clarity CLEAR (CLEAR) 09/12/16 00:15 Urine pH 7.0 09/12/16 00:15 Ur Specific [place] 1.020 (1.005-1.030) 09/12/16 00:15 Urine Protein >300 mg/dL (NEGATIVE) H 09/12/16 00:15 Urine Glucose (UA) 100 mg/dL (NEGATIVE) H 09/12/16 00:15 Urine Ketones NEGATIVE mg/dL (NEGATIVE) 09/12/16 00:15 Urine Blood SMALL (NEGATIVE) H 09/12/16 00:15 Urine Nitrate NEGATIVE (NEGATIVE) 09/12/16 00:15 Urine Bilirubin NEGATIVE (NEGATIVE) 09/12/16 00:15 Urine Urobilinogen 4.0 E.U./dL (0.2 - 1.0) H 09/12/16 00:15 Ur Leukocyte Esterase NEGATIVE (NEGATIVE) 09/12/16 00:15 Urine RBC 0-2 /hpf (0-5) H 09/12/16 00:15 Urine WBC 0-2 /hpf (0-5) 09/12/16 00:15 Ur Epithelial Cells OCCASIONAL /lpf (FEW) 09/12/16 00:15 Urine Bacteria OCCASIONAL /hpf (NONE SEEN) 09/12/16 00:15 - Physical Exam Vitals and I&O: Vital Signs Temp 97.7 F 09/14/16 08:00 Pulse 74 09/14/16 11:10 Resp 20 09/14/16 11:13 BP 156/92 09/14/16 08:50 Pulse Ox 98 09/14/16 11:10 Intake & Output 09/13/16 09/14/16 09/14/16 18:59 06:59 18:59 Intake Total 1100 832.5 Output Total 550 Balance 550 832.5 Weight (lbs) 218 lb 12.8 oz Intake: Intake, IV Amount 332.5 Potassium Chloride 60 meq 282.5 Lidocaine 1% 20mL Vial 25 mg In Sodium Chloride 0.9% 250 ml @ 48 mls/hr IV X1 ONE Rx#:[id number] Oral 1100 500 Output: Urine 550 Other: # Voids 4 3 Active Medications: Current Medications Acetaminophen (Tylenol) 650 mg PO Q4HR PRN PRN Reason: Pain or Fever >101 Stop: 11/10/16 20:37 Last Admin: 09/12/16 04:13 Dose: 650 mg Al Hydrox/Mg Hydrox/Simethicone (Maalox) 30 ml PO Q6HR PRN PRN Reason: Constipation Stop: 11/10/16 20:37 Albuterol Sulfate (Albuterol 2.5mg/3ml Neb Ud) 2.5 mg HHN QIDRT [facility] Stop: 11/12/16 10:59 Last Admin: 09/14/16 11:00 Dose: 2.5 mg Aspirin (Ecotrin) 81 mg PO DAILY DOMENIC Stop: 11/11/16 08:59 Last Admin: 09/14/16 08:50 Dose: 81 mg Benazepril HCl (Lotensin) 10 mg PO BID [facility]ENIC Stop: 11/11/16 08:59 Last Admin: 09/14/16 08:50 Dose: 10 mg Carvedilol (Coreg) 6.25 mg PO BID [facility] Stop: 11/11/16 08:59 Last Admin: 09/14/16 08:49 Dose: 6.25 mg Clonidine HCl (Catapres) 0.1 mg PO Q6HR PRN PRN Reason: SBP GREATER THAN 160 Stop: 11/10/16 20:37 Furosemide (Lasix) 20 mg IVP BID [facility] Stop: 11/11/16 08:59 Last Admin: 09/14/16 08:47 Dose: 20 mg Glipizide (Glucotrol) 5 mg PO QDAC [facility] Stop: 11/11/16 07:29 Last Admin: 09/14/16 06:30 Dose: 5 mg Heparin Sodium (Porcine) (Heparin) 5,000 units SUBQ Q12HR [facility]ENIC Stop: 11/10/16 20:59 Last Admin: 09/14/16 08:48 Dose: 5,000 units Insulin Aspart (Novolog) 0 units SUBQ ACHS DOMENIC PRN Reason: Protocol Stop: 11/10/16 20:59 Last Admin: 09/14/16 11:22 Dose: Not Given Ipratropium [place] (Atrovent Neb 0.5mg/2.5ml) 0.5 mg HHN QIDRT [facility] Stop: 11/12/16 10:59 Last Admin: 09/14/16 11:00 Dose: 0.5 mg Miscellaneous (Suvorexant [Belsomra]) 10 mg PO HS PRN PRN Reason: Insomnia Stop: 11/10/16 20:59 Miscellaneous (Vte [employer] Prophylaxis Screen/ Admission) 1 ea [facility] PRN PRN PRN Reason: PROTOCOL Stop: 11/11/16 11:37 Ondansetron HCl (Zofran) 4 mg IV Q8H PRN PRN Reason: Nausea / Vomiting Stop: 11/10/16 20:37 Pantoprazole Sodium (Protonix) 40 mg PO DAILY DOMENIC Stop: 11/11/16 08:59 Last Admin: 09/14/16 08:49 Dose: 40 mg Potassium Chloride (Klor-Con) 20 meq PO BID [facility]ENIC Stop: 11/12/16 16:59 Last Admin: 09/14/16 08:49 Dose: 20 meq Zolpidem Tartrate (Ambien) 10 mg PO HS PRN PRN Reason: Insomnia Stop: 11/10/16 20:37 General: alert HEENT: NC/AT, PERRLA Neck: Supple Lungs: CTAB Cardiovascular: RRR, Normal S1, Normal S2, without murmur Abdomen: soft non-tender, non-distended Extremities: clear Internal Medicine Assmt/Plan - Assessment Assessment: acute chf exacerbation hypokalemia hypocalcemia htn dm-2 alcoholism ckd stage 3 - Plan Plan: cardio clearance for discharge continue diuretics tele monitoring monitor lytes
--- NOTE | 2016-10-03 00:48 | Discharge Summary ---
FINAL DIAGNOSES: Congestive heart failure, hypokalemia, hyponatremia, hypoalcoholism____, protein-calorie malnutrition____. HISTORY OF PRESENT ILLNESS: This is a 71-year-old male, direct admission from [facility]. The patient had been having 3-day history of shortness of breath associated with productive cough with green phlegm. PHYSICAL EXAMINATION: GENERAL: The patient is well developed, well nourished, no acute distress. VITAL SIGNS: Stable. HEENT: Head normocephalic, atraumatic. NECK: Supple. No mass. LUNGS: Clear. CARDIOVASCULAR: Regular rhythm, no murmurs or gallops. ABDOMEN: Soft, nontender, nondistended. Positive bowel sounds in all 4 quadrants. HOSPITAL COURSE: During the hospital stay, the patient was admitted to telemetry unit. The patient had a consultation with Dr. Guru Casey. The patient had a 2D echo, CBC, BMP were being monitored as well. The patient had a chest x-ray done and the impression is cardiomegaly. The patient later then stabilized and stable for discharge. CONDITION UPON DISCHARGE: Fair. DISPOSITION: The patient is going home. Follow up with PCP in 1 week. JOB# [id number]
== END 2016-09-14 16:10 | disposition home or self-care (01) | DRG 291 ==
LOC: TELE 19:50
PROVIDERS: ADMIT Internal Medicine; ATTEND Internal Medicine
DX: I13.0 Hypertensive heart and chronic kidney disease with heart failure and stage 1 through stage 4 chronic kidney disease, or unspecified chronic kidney disease (principal); I50.23 Acute on chronic systolic (congestive) heart failure; E46 Unspecified protein-calorie malnutrition; E11.22 Type 2 diabetes mellitus with diabetic chronic kidney disease; E87.1 Hypo-osmolality and hyponatremia; N18.3 Chronic kidney disease, stage 3 (moderate); E87.6 Hypokalemia; F10.20 Alcohol dependence, uncomplicated; E83.51 Hypocalcemia; I69.30 Unspecified sequelae of cerebral infarction; E83.42 Hypomagnesemia; Z98.890 Other specified postprocedural states; Z90.49 Acquired absence of other specified parts of digestive tract; L04.0 Acute lymphadenitis of face, head and neck
CPT/HCPCS: 36415-UA; 71010-TC; 80048-TC; 80053-TC; 81001-TC; 82607-90; 82746-90; 82948-90; 83735-TC; 83880-TC; 84443-TC; 85025-TC; 90779; 93005; 94640; 94760; J1644; J1815; J1940; J2001; J3475; J3480; J7613; Z7610

== ENCOUNTER 2017-06-07 06:35 | Inpatient (IN) | payer MEDICARE, MEDICAID ==
[2017-06-07 07:00] VITALS: BP 210/89
[2017-06-07] MEDS ORDERED: Hydrocodone/APAP 5mg/325mg Tab PO PRN (08:06)
[2017-06-07] MEDS ORDERED: Magnesium Hydroxide (MOM) 30 mL UDC PO PRN (08:06)
[2017-06-07] MEDS ORDERED: Hydrocodone/APAP 10 mg/325 mg Tab PO PRN (08:06)
[2017-06-07] MEDS ORDERED: Non-Formulary Item 1 EA (Metoprolol Tartrate [Metoprolol Tartrate] 100 MG) PO SCH (09:00)
[2017-06-07 09:19] LABS: % BASOPHILS 0.1 % (0.0-2.0); % EOSINOPHILS 0.8 % (0.0-5.0); % LYMPHOCYTES 14.5 % (20.0-50.0); % MONOCYTES 3.9 % (2.0-10.0); % NEUTROPHILS 80.7 % (40.0-80.0); HEMOGLOBIN 14.5 gm/dL (12-16); MEAN CELL VOLUME 91.2 fl (80-99); MEAN CORPUSCULAR HEMOGLOBIN 30.8 pg (27.0-31.0); MEAN CORPUSCULAR HGB CONC 33.7 pg (28.0-36.0); MEAN PLATELET VOLUME 7.7 fl; NEUTROPHILE ABSOLUTE 8.5 Th/cmm (1.8-8.0); WHITE BLOOD COUNT 10.5 Th/cmm (4.8-10.8)
[2017-06-07 09:33] LABS: HEMATOCRIT 42.9 % (41.0-60); PLATELET COUNT 188 Th/cmm (150-400)
[2017-06-07] MEDS: Potassium Chloride 20 mEq ER Tab PO SCH ×2 (10:03→16:57)
[2017-06-07 11:16] LABS: ALB/GLOB RATIO 0.9 (1.0-1.8); ALKALINE PHOSPHATASE 55 U/L (34-104); ANION GAP 9.4 (7.0-16.0); BILIRUBIN,TOTAL 1.6 mg/dL (0.3-1.0); BUN - UREA NITROGEN 14 mg/dL (7-25); BUN/CREATININE RATIO 10.8; CALCIUM SERUM 9.1 mg/dL (8.6-10.3); CARBON DIOXIDE 35.3 mEq/L (21.0-31.0); CHLORIDE 95 mEq/L (98-107); CREATININE - SERUM 1.3 mg/dL (0.7-1.3); GLUCOSE 214 mg/dL (70-105); SGOT 18 U/L (13-39); SGPT/ALT 9 U/L (7-52); SODIUM SERUM 137 mEq/L (136-145)
[2017-06-07 11:30] LABS: POTASSIUM SERUM 2.7 mEq/L (3.5-5.1)
[2017-06-07] MEDS: INSULIN ASPART SLIDING SCALE 100 UNITS/ML UNIT SUBQ SCH ×3 (11:37→21:28)
[2017-06-07] MEDS ORDERED: Potassium Chloride 20 mEq ER Tab PO ONE (13:09)
--- NOTE | 2017-06-07 14:08 | History & Physical ---
ADMIT DATE: 06/07/2017 CHIEF COMPLAINT: The patient has shortness of breath. HISTORY OF PRESENT ILLNESS: The patient is a 71-year-old male who initially presented to [facility] ER. The patient complained of shortness of breath for 2 days, progressively worse, he cannot lie flat. No chest pain or no fainting. The patient has a history of CHF, ____ 40%, last hospital admission on 03/2017. The patient diuresed and presumed PEE with a VQ scan, high probability. The patient weak and had not responded to diet. The patient received percent baseline short of breath on minimal exertion. PAST MEDICAL HISTORY: Hypertension, diabetes type 2, CHF acute on chronic, hypokalemia, chronic disease, stage 3, lactic acidosis, history of CVA without residual deficits, moderate alcohol use disorder, leukocytosis, heart failure, chronic, pulmonary embolus, dyslipidemia. No troponin levels. PAST SURGICAL HISTORY: Appendectomy, cholecystectomy and inguinal hernia repair, bilateral. MEDICATIONS: See medication form. REVIEW OF SYSTEMS: See history of present illness. ALLERGIES: No known allergies. SOCIAL HISTORY: Denies tobacco abuse. Positive alcohol abuse. Denies IV drug abuse. PHYSICAL EXAMINATION: GENERAL: The patient is awake. The patient was noted respiratory distress and to the ER per [facility]. VITAL SIGNS: On admission, temperature 97.9, pulse 79, blood pressure 210/89, respirations 20, O2 sat 98% on room air. HEENT: Normocephalic, atraumatic. Extraocular movements are intact. Oropharynx is clear. NECK: Supple. No thyromegaly. CARDIOVASCULAR: S1, S2. No rubs, gallops. RESPIRATORY: Rales. GASTROINTESTINAL: Soft, nontender. Positive bowel sounds. GENITOURINARY: No CVA tenderness. BACK: No midline tenderness. EXTREMITIES: Equal pulses bilaterally. The patient had 1+ PT pedal edema. SKIN: Negative. PSYCHIATRIC: Negative. NEUROLOGIC: Intact with intact. Neurovascular is intact. LABORATORY DATA: Hematology 10.5, hemoglobin 14.5, hematocrit 42.9, platelet count of 188, 80% neutrophils, 5% lymphocytes. Chemistry: Sodium 137, potassium 2.7, chloride 95, bicarbonate 25, anion gap 9.4, BUN 14, creatinine 1.3. GFR is unavailable. Glucose is 214, hemoglobin A1c 5.6, calcium 9.1, total bili 0.6, AST 18, ALT is 9, alkaline phosphatase 55, troponin 0.04, ____ 7.3, albumin 3.5, globulin 3.8. MICROBIOLOGY: No new hematocrit is also. RADIOLOGY: No new results. IMPRESSION: 1. Respiratory distress. 2. Systolic heart failure, acute on chronic. 3. Hypertension. 4. Diabetes mellitus type 2. 5. Hypokalemia. 6. Chronic kidney disease stage 3. 7. History of stroke without deficits. 8. Moderate alcohol use disorder. 9. Pulmonary embolism. 10. Dyslipidemia. PLAN: The patient admitted to telemetry unit at [facility]. Cardiology consultation obtained. We will continue home medications. We will obtain further labs and consultation as needed. JOB# [id number]
[2017-06-07] MEDS: Pantoprazole 40 mg EC Tab PO SCH (16:51)
--- NOTE | 2017-06-07 17:32 | Consultation ---
DATE OF CONSULTATION: 06/07/[address] Babak Echeverria. HISTORY AND PHYSICAL: This is a 71-year-old male patient, recently seen at [facility] for shortness of breath . The patient has orthopnea. The patient was evaluated and transferred to [facility]. PAST MEDICAL HISTORY: Hypertension, diabetes mellitus type 2, congestive heart failure, chronic CKD stage III, lactic acidosis, CVA with no residual effect, moderate alcohol use, pulmonary embolism, diabetes mellitus type 2, appendectomy, cholecystectomy, hernial repair. FAMILY HISTORY: Unremarkable. SOCIAL HISTORY: No history of smoking, alcohol abuse. ALLERGIES: No known allergies. PHYSICAL EXAMINATION: VITAL SIGNS: Blood pressure 130/80, pulse 80, respirations 20. HEENT: Head normocephalic. No lumps or bumps. EYES: Pupils equal, reactive to light. Fundi show AV nicking, sclerae white, conjunctivae pink. NECK: Carotid 2+. Normal upstroke. JVD flat. Thyroid not palpable. Lymph nodes not palpable. CHEST: Shows increased AP diameter. No kyphosis, scoliosis. LUNGS: Bilateral wheezing, rhonchi, prolonged expiration. HEART: PMI fifth intercostal space with lateral to midclavicular line. S1, S2. No S3, S4. Systolic murmur, grade 2/6, lower left sternal border without radiation. ABDOMEN: Soft. Liver, spleen not palpable. No organomegaly. Bowel sounds active. NEUROLOGIC: No focal neurological deficit. EXTREMITIES: Peripheral pulses 2+. No pedal edema. The patient's potassium level is 2.7. CLINICAL IMPRESSION: 1. Congestive heart failure. 2. Systolic dysfunction. 3. Acute hypertension. 4. Diabetes mellitus type 2. 5. Diabetic chronic kidney disease stage III. 6. CVA with late effect noted, residual effect. 7. Alcohol dependence. 8. Hypokalemia. 9. Pulmonary embolism. 10. Hyperlipidemia. 11. History of appendectomy and cholecystectomy and hernia repair. PLAN: Admit the patient. We will get repeat troponin levels, potassium supplement, echocardiogram to evaluate left ventricular function. JOB# [id number]
[2017-06-07] MEDS ORDERED: Enoxaparin 40 mg/0.4 mL 0.4mL Syr SUBQ SCH (21:00)
[2017-06-07] MEDS ORDERED: SUVOREXANT 10 MG PO SCH (21:00)
[2017-06-08 05:24] LABS: % BASOPHILS 0.3 % (0.0-2.0); % LYMPHOCYTES 26.5 % (20.0-50.0); % NEUTROPHILS 65.2 % (40.0-80.0); HEMATOCRIT 42.5 % (41.0-60); HEMOGLOBIN 14.3 gm/dL (12-16); MEAN CELL VOLUME 91.3 fl (80-99); MEAN CORPUSCULAR HEMOGLOBIN 30.8 pg (27.0-31.0); MEAN CORPUSCULAR HGB CONC 33.7 pg (28.0-36.0); MEAN PLATELET VOLUME 7.6 fl; NEUTROPHILE ABSOLUTE 6.6 Th/cmm (1.8-8.0); PLATELET COUNT 174 Th/cmm (150-400); RED BLOOD COUNT 4.65 Mil/cmm (3.80-5.80); RED CELL DISTRIBUTION WIDTH 15.1 % (11.5-20.0); WHITE BLOOD COUNT 10.1 Th/cmm (4.8-10.8)
[2017-06-08 05:46] LABS: ANION GAP 6.5 (7.0-16.0); BUN - UREA NITROGEN 19 mg/dL (7-25); BUN/CREATININE RATIO 13.6; CARBON DIOXIDE 38.8 mEq/L (21.0-31.0); CHLORIDE 97 mEq/L (98-107); CREATININE - SERUM 1.4 mg/dL (0.7-1.3); GLUCOSE 103 mg/dL (70-105); POTASSIUM SERUM 3.3 mEq/L (3.5-5.1); SODIUM SERUM 139 mEq/L (136-145)
[2017-06-08] MEDS: Pantoprazole 40 mg EC Tab PO SCH (06:55)
[2017-06-08] MEDS: INSULIN ASPART SLIDING SCALE 100 UNITS/ML UNIT SUBQ SCH ×4 (07:08→20:23)
[2017-06-08] MEDS ORDERED: Potassium Chloride 20 mEq ER Tab PO ONE (08:45)
[2017-06-08] MEDS: Potassium Chloride 20 mEq ER Tab PO SCH ×2 (09:20→17:27)
--- NOTE | 2017-06-08 18:16 | Progress Notes ---
DATE: 06/08/2017 SUBJECTIVE: The patient is awake and alert. The patient is receiving IV Lasix. OBJECTIVE: VITAL SIGNS: Temperature 98.1, pulse 77, blood pressure 158/74, respiratory rate 17, oxygen saturation 97% on room air. CARDIOVASCULAR: S1 and S2. RESPIRATORY: Few rales. ABDOMEN: Soft. Positive bowel sounds. LABORATORY DATA: Hematology, white count 10.1, hemoglobin 14.3, hematocrit 42.5, platelet count of 174. Chemistry shows sodium 139, potassium 3.3, chloride ____, bicarbonate 38, anion gap 6.5, BUN 19, creatinine 1.4, glucose is 103, BNP 716. MICROBIOLOGY: No new microbiology results. RADIOLOGY: No new radiology results. ASSESSMENT: 1. Respiratory distress, resolved. 2. Systolic heart failure, acute on chronic. 3. Hypertension. 4. Diabetes mellitus type 2. 5. Hypokalemia. 6. Chronic kidney disease stage 3. 7. History of stroke without deficits. 8. Moderate alcohol use disorder. 9. Pulmonary embolism. 10. Dyslipidemia. PLAN: Continue current medication and treatment. Obtain labs in a.m. We will correct potassium deficiency. Awaiting echocardiogram results. Further consults. JOB# [id number]
[2017-06-09] MEDS ORDERED: Mag Sulfate 2gm/50mL Premix 2 GM/50 ML BAG IV SCH (01:55)
[2017-06-09 06:12] LABS: % BASOPHILS 1.4 % (0.0-2.0); % EOSINOPHILS 1.2 % (0.0-5.0); % LYMPHOCYTES 19.4 % (20.0-50.0); % MONOCYTES 8.8 % (2.0-10.0); % NEUTROPHILS 69.2 % (40.0-80.0); HEMATOCRIT 40.6 % (41.0-60); HEMOGLOBIN 13.8 gm/dL (12-16); MEAN CELL VOLUME 91.1 fl (80-99); MEAN CORPUSCULAR HGB CONC 34.1 pg (28.0-36.0); MEAN PLATELET VOLUME 7.9 fl; NEUTROPHILE ABSOLUTE 8.3 Th/cmm (1.8-8.0); PLATELET COUNT 157 Th/cmm (150-400); RED BLOOD COUNT 4.46 Mil/cmm (3.80-5.80); RED CELL DISTRIBUTION WIDTH 15.1 % (11.5-20.0)
[2017-06-09 06:30] LABS: ANION GAP 9.3 (7.0-16.0); BUN - UREA NITROGEN 22 mg/dL (7-25); BUN/CREATININE RATIO 16.9; CALCIUM SERUM 8.9 mg/dL (8.6-10.3); CARBON DIOXIDE 33.1 mEq/L (21.0-31.0); CHLORIDE 97 mEq/L (98-107); CREATININE - SERUM 1.3 mg/dL (0.7-1.3); GLUCOSE 121 mg/dL (70-105); PHOSPHOROUS 3.4 mg/dL (2.5-5.0); POTASSIUM SERUM 3.4 mEq/L (3.5-5.1); SODIUM SERUM 136 mEq/L (136-145)
[2017-06-09] MEDS: Pantoprazole 40 mg EC Tab PO SCH (06:43)
[2017-06-09] MEDS: INSULIN ASPART SLIDING SCALE 100 UNITS/ML UNIT SUBQ SCH ×3 (06:43→18:15)
[2017-06-09] MEDS: Potassium Chloride 20 mEq ER Tab PO SCH ×2 (08:20→17:39)
[2017-06-09] MEDS ORDERED: Potassium Chloride 20 mEq ER Tab PO ONE (12:05)
--- NOTE | 2017-06-09 22:31 | Discharge Summary ---
DATE OF DISCHARGE: 06/09/2017 DISCHARGE DIAGNOSES: 1. Respiratory distress, resolved. 2. Systolic heart failure, acute on chronic. 3. Hypertension. 4. Diabetes mellitus type 2. 5. Hypokalemia. 6. Chronic kidney disease stage 3. 7. History of stroke without deficits. 8. Moderate alcohol use disorder. 9. Dyslipidemia. HOSPITAL COURSE: The patient is a 71-year-old male who was transferred from [facility]. The patient admitted with diagnoses of respiratory distress; systolic heart failure, acute on chronic; hypertension; diabetes mellitus type 2; hypokalemia; chronic kidney disease stage 3; history of stroke without deficits; moderate alcohol use disorder and dyslipidemia. The patient was admitted to telemetry unit. Cardiology consultation was obtained from Dr. Casey. The patient ____. The patient will be discharged home today per clearance from Cardiology. JOB# [id number]
--- NOTE | 2017-06-10 02:59 | Progress Notes ---
DATE: 06/09/2017 SUBJECTIVE: The patient is awake and alert. The patient denies chest pain. The patient denies any shortness of breath. OBJECTIVE: VITAL SIGNS: Temperature 98, pulse 80, blood pressure 160/79, respiratory rate 17, oxygen saturation ____ on room air. CARDIOVASCULAR: S1 and S2. RESPIRATORY: Clear. ABDOMEN: Soft. Positive bowel sounds. LABORATORY DATA: Hematology: White count 12.0, hemoglobin ____, hematocrit ____, platelet count 157. Lymphocytes 90%. Chemistry: Sodium 136, potassium 3.4, chloride 97, bicarbonate 33, anion gap 9.8, BUN 22, creatinine 1.3, ____, glucose 121, calcium 8.9, phosphorus 3.4. MICROBIOLOGY: No new microbiology results. RADIOLOGY: No new radiology results. ASSESSMENT: 1. Leukocytosis. 2. Hypokalemia. 3. Hyperglycemia. 4. Respiratory distress, resolved. 5. Systolic heart failure, acute on chronic. 6. Hypertension. 7. Diabetes mellitus type 2. 8. Chronic kidney disease stage 3. 9. History of stroke without deficits. 10. Moderate alcohol use disorder. 11. Pulmonary embolism. 12. Dyslipidemia. PLAN: Continue current medication and treatment. ____. Further consults. JOB# [id number]
--- NOTE | 2017-06-10 13:27 | Cardiology ---
06/08/[address] Echeverria. M-MODE ECHOCARDIOGRAM: Mitral valve, anterior leaflet of the mitral valve shows decreased excursion, EF velocity. Posterior leaflet of mitral valve shows decreased excursion. Left ventricular posterior wall shows increased thickness, decreased excursion. Interventricular septum shows increased thickness, decreased excursion, hypertrophy of the left ventricle, ejection fraction 30%. Left atrium enlarged 4.2 cm. Aortic root shows normal dimension, normal excursion of aortic leaflets. CONCLUSION: Hypertrophy of the left ventricle, left atrial enlargement, ejection fraction 30%. 2D ECHO: Long axis view shows enlarged left ventricular cavity with decreased ejection fraction, hypertrophy of the left ventricle. Left atrium enlarged. Aortic root shows normal dimension, normal excursion of aortic leaflets. Short axis view of mitral valve normal. Short axis view of aortic valve normal. Apical four chamber view shows hypertrophy of the left ventricle, ejection fraction 30%, left atrial enlargement, right ventricular cavity normal. Right atrial enlargement. CONCLUSION: Left atrial enlargement. Right atrial enlargement. Hypertrophy of the left ventricle, ejection fraction 30%. Doppler study shows prominent A wave consistent with poor compliance of left ventricle, mild aortic regurgitation, trace tricuspid regurgitation, trace mitral regurgitation. JOB# [id number]
== END 2017-06-09 18:30 | disposition home or self-care (01) | DRG 291 ==
LOC: TELE 06:35
PROVIDERS: ADMIT Preventive Medicine Preventive Medicine/Occupational Environmental Medicine; ATTEND Preventive Medicine Preventive Medicine/Occupational Environmental Medicine
DX: I13.0 Hypertensive heart and chronic kidney disease with heart failure and stage 1 through stage 4 chronic kidney disease, or unspecified chronic kidney disease (principal); I50.23 Acute on chronic systolic (congestive) heart failure; E11.22 Type 2 diabetes mellitus with diabetic chronic kidney disease; R06.00 Dyspnea, unspecified; E11.65 Type 2 diabetes mellitus with hyperglycemia; N18.3 Chronic kidney disease, stage 3 (moderate); E87.6 Hypokalemia; E78.5 Hyperlipidemia, unspecified; F10.20 Alcohol dependence, uncomplicated; Z86.711 Personal history of pulmonary embolism; Z90.49 Acquired absence of other specified parts of digestive tract; Z86.73 Personal history of transient ischemic attack (TIA), and cerebral infarction without residual deficits
CPT/HCPCS: 36415-UA; 80048-TC; 80053-TC; 82948-90; 83036-90; 83735-TC; 83880-TC; 84100-TC; 84484-TC; 85025-TC; 93005; J1815; J1940; J3475; Z7610